=== PATIENT | female | born 1980 | race Caucasian/White ===

== ENCOUNTER → 2024-01-31 15:14 | Outpatient (REF) | payer BC, SELFPAY | LOC: WDC 15:14 | PROVIDERS: ATTENDING PHYSICIAN Family Medicine | DX: Z12.31 Encounter for screening mammogram for malignant neoplasm of breast (principal) | CPT/HCPCS: 77063; 77067 ==

== ENCOUNTER → 2024-05-15 15:04 | Outpatient (REF) | payer BC, SELFPAY | LOC: RAD 15:04 | PROVIDERS: ATTENDING PHYSICIAN Physician Assistant Medical | DX: J20.9 Acute bronchitis, unspecified (principal); R05.1 Acute cough | CPT/HCPCS: 71046 ==

== ENCOUNTER → 2024-07-03 10:27 | Outpatient (REF) | payer BC, SELFPAY | LOC: RAD 10:27 | PROVIDERS: ATTENDING PHYSICIAN Emergency Medicine; FAMILY PHYSICIAN Family Medicine | DX: S99.922A Unspecified injury of left foot, initial encounter (principal) | CPT/HCPCS: 73630 ==

== ENCOUNTER 2024-10-10 11:04 | Emergency (ER) | payer BC, SELFPAY ==
[2024-10-10 11:23] VITALS: BP 151/95
--- NOTE | 2024-10-10 11:27 | ED.GENMED ---
ED Provider Triage
<Ryan Connolly PA-C - Last Filed: 10/10/24 11:28>
-
Patient seen by provider in Triage?: Seen in Triage
Attestation: A medical screening examination has been initiated by a qualified medical provider. Based on the assessment performed at this time, it has been determined that an emergent medical condition may exist and the patient has been informed
that further medical evaluation and possible additional diagnostic testing may be needed.
HPI: 44-year-old female presenting to the ER for evaluation after she woke up this morning, went to have a bowel movement and noted loose stool with intermixed bright red blood and small clots. Denies any history of similar. She notes some mild
generalized abdominal discomfort but nothing that is out of the ordinary for her. Denies any chest pain, shortness of breath, lightheadedness or dizziness. No use of anticoagulants. No known GI history. Labs and CT imaging ordered. Patient
otherwise currently hemodynamically stable
GENERAL: Alert , in no apparent distress
EYE: No visual abnormalities.
NECK: Trachea midline
ENT: No visible abnormalities.
LUNGS: No acute respiratory distress
NEUROLOGICAL: Alert and oriented
SKIN: Skin intact. No visible changes.
MUSCULOSKELETAL: Moving extremities normally
PSYCH: Normal and appropriate interaction.
This is a medical evaluation conducted in person to initiate diagnostic evaluation and provide initial therapeutics. Please see further documentation by the treating clinician.
History of Present Illness
<Ryan Connolly PA-C - Last Filed: 10/10/24 11:28>
General
Chief Complaint: Rectal Bleeding
Time Seen by Provider: 10/10/24 15:05
<Luna Tomas PA-C - Last Filed: 10/11/24 00:08>
General
Source: patient
Exam Limitations: none
Nursing documentation reviewed up to this point in time: agreed with
History of Present Illness
History of Present Illness:
pt is a 44 y/o F with h/o MS, depression, NIDDM
does usually have irregular BMs, every few days
went to [place] 3 weeks ago for a week and didn't have BM t he entire time so she came home and was trying natural remedies to help her poop, like herbal things and prune juice etc
she did end up ruthie but it has been a bit more difficult
she feels that she has to press her perineum to help pass stool soetimes or to initiate stool but she has no pain
this am had BM without any discomfort and then when she looked in the toilet there was red blood mixed with stool and a little bit of blood in the toilet bowl. The water was not colored red. She is sure it is from her rectum not from her vagina or
urine. Patient last had a menstrual cycle 1 week ago that resolved. She had a little bit of residual lower abdominal pain
Patient had colonoscopy in [address] Quintero showing a redundant colon and a descending colon polyp as well as some firm stool
There were no documented hemorrhoids or diverticula
Patient is not on any blood thinners, she does not take NSAIDs frequently or aspirin.
Patient has had some depression but she takes Lexapro and sees a therapist. She became tearful talking about this but is not suicidal
She has not had a fever, vomiting blood, black stool, significant or severe abdominal pain
Past History
<Ryan Connolly PA-C - Last Filed: 10/10/24 11:28>
Past History
ED Past Medical History: Psychiatric (PTSD) and Other (MS, Migraine headaches, fibromyalgia, History of Bulemia)
ED Past Surgical History: None
Social History
Tobacco: Smoker
Alcohol: Occasional
Personal: (Seperated)
Living: with family
Employment: Employed
Family History
Family History: Other (Noncontributory)
<Luna Tomas PA-C - Last Filed: 10/11/24 00:08>
Past History
ED Past Medical History: NIDDM
Review of Systems
<Luna Tomas PA-C - Last Filed: 10/11/24 00:08>
Review of Systems
Allergies reviewed?: Yes
All Other Systems: Not applicable
Phy Exam
<Luna Tomas PA-C - Last Filed: 10/11/24 00:08>
Physical Exam
Physical Exam:
GENERAL: Alert , in no apparent distress
EYE: pupils equal and reactive
NECK: Supple
ENT: o/p clr, mmm.
CARDIAC: Regular rate and rhythm .
LUNGS: Clear breath sounds bilaterally, no acute respiratory distress, no wheezes/rales/rhonchi
ABDOMEN: Soft, without focal tenderness, no r/g, no cvat, normal bowel sounds
Rectal: 2 nonbleeding nonthrombosed very small nontender external hemorrhoids, on digital rectal exam patient had light brown stool that was heme-negative and possibly a small internal hemorrhoid, nontender, no bleeding
NEUROLOGICAL: Alert and oriented, no focal neuro deficits
SKIN: Warm and dry, skin intact.
MUSCULOSKELETAL: No edema, well perfused. neg rozina's sign
PSYCH: Normal and appropriate interaction.
Course
<Ryan Connolly PA-C - Last Filed: 10/10/24 11:28>
Orders/Labs/Results
Orders:
Orders
10/10/24 11:25
Test Result ONCE
10/10/24 11:26
Iohexol [Omnipaque] See Protocol PO NOW STA
10/10/24 11:27
CT Abd/pel W Iv And Oral Contr Urgent
Comment:
Reason For Exam: GI bleeding, no hx
10/10/24 11:36
Type+Screen Urgent
CRP [C-Reactive Protein] Urgent
Complete Blood Count/With Diff Urgent
Comprehensive Metabolic Panel Urgent
ESR [Erythrocyte Sed Rate] Urgent
HCG, Serum Qualitative Screen Urgent
PTT Urgent
Prothrombin Time Urgent
Abnormal Lab Results
10/10/24
11:36
Absolute Monos (auto) 0.7 H 10^3/uL
(0.1-0.6)
10/10/24 11:36
10/10/24 11:36
Vital Signs
Initial and Last Documented VS:
Initial Vital Signs
Temp Pulse Resp BP Pulse Ox
37.1 C 76 16 151/95 98
10/10/24 11:23 10/10/24 11:23 10/10/24 11:23 10/10/24 11:23 10/10/24 11:23
Last Documented Vital Signs
Temp Pulse Resp BP Pulse Ox
37.1 C 82 16 138/100 99
10/10/24 11:23 10/10/24 15:31 10/10/24 15:31 10/10/24 15:41 10/10/24 15:31
<Luna Tomas PA-C - Last Filed: 10/11/24 00:08>
Orders/Labs/Results
Orders:
Orders
10/10/24 11:25
Test Result ONCE
10/10/24 11:26
Iohexol [Omnipaque] See Protocol PO NOW STA
10/10/24 11:27
CT Abd/pel W Iv And Oral Contr Urgent
Comment:
Reason For Exam: GI bleeding, no hx
10/10/24 11:36
Type+Screen Urgent
CRP [C-Reactive Protein] Urgent
Complete Blood Count/With Diff Urgent
Comprehensive Metabolic Panel Urgent
ESR [Erythrocyte Sed Rate] Urgent
HCG, Serum Qualitative Screen Urgent
PTT Urgent
Prothrombin Time Urgent
Abnormal Lab Results
10/10/24
11:36
Absolute Monos (auto) 0.7 H 10^3/uL
(0.1-0.6)
10/10/24 11:36
10/10/24 11:36
Vital Signs
Initial and Last Documented VS:
Initial Vital Signs
Temp Pulse Resp BP Pulse Ox
37.1 C 76 16 151/95 98
10/10/24 11:23 10/10/24 11:23 10/10/24 11:23 10/10/24 11:23 10/10/24 11:23
Last Documented Vital Signs
Temp Pulse Resp BP Pulse Ox
37.1 C 82 16 138/100 99
10/10/24 11:23 10/10/24 15:31 10/10/24 15:31 10/10/24 15:41 10/10/24 15:31
<Luna Tomas PA-C - Last Filed: 10/11/24 00:08>
MDM/Problems Addressed
Differential Diagnosis Includes:
hemorrhoids, ischemic colitis, diverticulitis, constipation, uterine bleeding
MDM/Problems Addressed:
44-year-old female with a history of MS on a immunosuppressive infusion every 6 months, new onset of hxz-[id number]-zqwsmsuxf diabetes recently started metformin, chronic constipation and she is presents for irregular stool over the last 2 or 3 weeks
after going to [place]. Patient says she did use some natural remedies to help her move her bowels which worked but then she still had a little bit of difficulty. She does not have any rectal pain but today after bowel movement she saw blood in the
toilet and mixed in with the stool. There is mild cramping in her lower abdomen. She is certain that it was from her rectum. She last had a menstrual cycle last week.
On exam patient is slightly depressed and tearful at times but contracts for safety and is not suicidal. She had a very minimal amount of lower abdominal tenderness on abdominal exam without any rebound or guarding. She looks very comfortable.
Her CAROLINE had light brown stool that was heme-negative which is very reassuring. Also reassuring is her stable hemoglobin, normal BUN, negative CRP, and negative CT scan.
At this point her bleeding is probably hemorrhoidal which resolved. Would recommend stool softener with Metamucil daily, MiraLAX as needed and a suppository Preparation H for the next 2 or 3 days as needed
Patient is plugged into [facility], she should call for an appointment.
<Luna Tomas PA-C - Last Filed: 10/11/24 00:08>
*Critical Care Note
Total Time (30-74mins, 75-104mins- exclusive of procedures): Not Applicable
ED Attending Note
<Ryan Connolly PA-C - Last Filed: 10/10/24 11:28>
-
Portions of this chart may have been created with voice recognition software.� Occasional wrong word or��sound alike� substitutions may have occurred due to the inherent limitations of voice recognition software.
Discharge Plan
Departure
Patient Disposition: Home (Routine Discharge)
Date of Disposition: 10/10/24
Time of Disposition: 15:36
Patient with high blood pressure during this ER visit?: Yes
Covid-19: Not Applicable
Discharge Problem:
Rectal bleed
Instructions: Constipation, Adult (DC), Bloody Stools, Adult (DC)
Prescriptions:
No Action
acetaminophen-codeine 300-60 mg Tablet
1 tab PO Q6H PRN (Reason: Leg Pain)
escitalopram oxalate [Lexapro] 20 mg Tablet
40 mg PO DAILY
ZzzQuil 120 mg
120 mg PO HS PRN (Reason: Insomnia)
omeprazole magnesium [Prilosec OTC] 20 MG tablet,delayed release (DR/EC)
20 mg PO HS
Medical Marijuana
1 dose PO PRN PRN (Reason: anxiety/pain)
Rx Instructions:
Tincture, INH
Ocrevus 30 mg/mL Solution
IV [id number]
acyclovir 400 mg Tablet
400 mg PO PRN PRN (Reason: Outbreak)
lorazepam 2 mg Tablet
2 mg PO DAILY
vitamin B complex [Super B Complex] Tablet
1 tab PO DAILY
bupropion HCl [Wellbutrin XL] 150 mg Tablet Extended Release 24 Hr
150 mg PO DAILY
melatonin 12 mg Tablet
12 mg PO HS
Referrals:
Zoie Quintero MD [Active] - Follow up in 5-7 days
Activity Restrictions/Additional Instructions:
YOUR STOOL TESTED NEGATIVE FOR BLOOD AND YOUR BLOOD WORK WAS REASSURING
THIS COULD HAVE BEEN HEMORRHOIDAL BLEEDING
TRY PREPARATION H SUPPOSITORY ONCE A DAY FOR 2-3 DAYS IN A ROW (MAKE SURE IT HAS PHENYLEPHRINE 0.25%)
FOR DAILY STOOL SOFTENER, USE METAMUCIL POWDER
AND NEEDED USE MIRALAX TWICE A DAY FOR 2-3 DAYS FOR SEVERE CONSTIPATION
CALL THE GI DOCTOR FOR FOLLOW UP
RETURN FO RANY CONCERNS: REPEATED BLEEDING, WORSE PAIN, FEVER, PASSING OUT OR ANY CONCERNS.
Interventions
Interventions:
*Risk Screen - Suicide Last Done: 10/10/24 11:23
*General Assessment Last Done: 10/10/24 15:17
*Neglect/Abuse Screening Last Done: 10/10/24 11:23
ED- Fall Risk Assessment Last Done: 10/10/24 15:17
*ED COVID-19 Vaccine History Last Done: 10/10/24 15:17
*Nursing Disposition Last Done: 10/10/24 15:43
LF-Asksko-Hovwpuvqfz Assessment Last Done: 10/10/24 15:17
ED- Cardiac Assessment Last Done: 10/10/24 15:27
ED- Pulmonary Assessment Last Done: 10/10/24 15:17
Discharge Date and Time
Discharge Date/Time: 10/10/24 15:40
Print Language: LATVIAN
[2024-10-10 11:50] LABS: % Basophils 0.7 % (0-2); % Eosinophils 0.9 % (0-6); % Immature Granulocytes 0.2 % (0-0.5); % Lymphocytes 34.2 % (20.5-51.1); % Monocytes 7.3 % (1.7-9.3); % Neutrophils 56.7 % (42.2-75.2); Absolute Basophils 0.1 10^3/uL (0-0.2); Absolute Eosinophils 0.1 10^3/uL (0-0.7); Absolute Lymphocytes 3.4 10^3/uL (1.2-3.4); Absolute Monocytes 0.7 10^3/uL (0.1-0.6); Absolute Neutrophils 5.6 10^3/uL (1.4-6.5); Hematocrit 38.2 % (37.0-47.0); Hemoglobin 12.9 g/dL (12.0-16.0); Mean Corp Hgb Conc. 33.8 g/dL (33.0-37.0); Mean Corpuscular Hgb 28.5 pg (27.0-31.0); Mean Corpuscular Volume 84.3 fL (81.0-99.0); Mean Platelet Volume 9.3 fL (7.4-10.4); Nucleated Red Blood Cells % 0 %; Platelet Count 375 10^3/uL (130-400); Red Blood Cell Count 4.53 10^6/uL (4.20-5.40); Red Cell Dist. Width 13.5 % (11.5-14.5); White Blood Cell Count 9.8 10^3/uL (4.8-10.8)
[2024-10-10 11:56] LABS: HCG, Serum Qualitative Screen Negative
[2024-10-10 11:58] LABS: INR 0.85; PT 11.9 Sec (11.4-14.6)
[2024-10-10 11:59] LABS: APTT 25.3 Sec (23.4-35.0)
[2024-10-10 12:01] LABS: ALT (SGPT) 16 U/L (0-35); AST (SGOT) 18 U/L (14-36); Albumin 4.1 g/dl (3.5-5.0); Alkaline Phosphatase 83 U/L (38-126); Blood Urea Nitrogen 15 mg/dl (7-17); Calcium 9.4 mg/dl (8.4-10.2); Carbon Dioxide 24 mmol/L (22-30); Chloride 102 mmol/L (98-107); Glucose 87 mg/dl (70-99); Potassium 4.1 mmol/L (3.5-5.1); Sodium 135 mmol/L (135-145); Total Bilirubin 0.2 mg/dl (0.2-1.3); Total Protein 6.6 g/dl (6.3-8.2); eGFR > 60.00
[2024-10-10 12:03] LABS: C-Reactive Protein < 5.00 mg/L (0.0-10.00)
[2024-10-10] MEDS: OMNIPAQUE 50 ML PO (12:30)
[2024-10-10 12:45] LABS: Erythrocyte Sed Rate 9 mm/hour (0-20)
[2024-10-10 14:10] VITALS: BP 142/81
[2024-10-10 15:31] VITALS: BP 153/99
[2024-10-10 15:41] VITALS: BP 138/100
== END 2024-10-10 15:40 | disposition home or self-care (01) ==
LOC: EMR 11:04
PROVIDERS: Physician Assistant Medical; EMERGENCY PHYSICIAN Emergency Medicine; FAMILY PHYSICIAN Family Medicine
DX: K62.5 Hemorrhage of anus and rectum (principal); R10.30 Lower abdominal pain, unspecified; K64.4 Residual hemorrhoidal skin tags; K59.09 Other constipation; R03.0 Elevated blood-pressure reading, without diagnosis of hypertension; G35 Multiple sclerosis; E11.9 Type 2 diabetes mellitus without complications; F32.A Depression, unspecified; F41.9 Anxiety disorder, unspecified; F43.10 Post-traumatic stress disorder, unspecified; G43.909 Migraine, unspecified, not intractable, without status migrainosus; K21.9 Gastro-esophageal reflux disease without esophagitis; M79.7 Fibromyalgia; F17.200 Nicotine dependence, unspecified, uncomplicated; Z86.0100 Personal history of colon polyps, unspecified; Z79.899 Other long term (current) drug therapy
CPT/HCPCS: 99284; 74177; 80053; 84703; 85025; 85610; 85652; 85730; 86140; 86850; 86900; 86901; Q9967

== ENCOUNTER → 2024-10-23 16:04 | Outpatient (REF) | payer BC, SELFPAY | LOC: DHSLP 16:04 | PROVIDERS: ATTENDING PHYSICIAN Internal Medicine; FAMILY PHYSICIAN Family Medicine | DX: G47.33 Obstructive sleep apnea (adult) (pediatric) (principal) | CPT/HCPCS: 95800 ==

== ENCOUNTER → 2025-02-12 15:32 | Outpatient (REF) | payer BC, SELFPAY | LOC: WDC 15:32 | PROVIDERS: ATTENDING PHYSICIAN Family Medicine | DX: Z12.31 Encounter for screening mammogram for malignant neoplasm of breast (principal) | CPT/HCPCS: 77063; 77067 ==

== ENCOUNTER → 2025-04-17 10:10 | Outpatient (REF) | payer BC, SELFPAY | LOC: RAD 10:10 | PROVIDERS: ATTENDING PHYSICIAN Family Medicine | DX: R05.1 Acute cough (principal) | CPT/HCPCS: 71046 ==